=== PATIENT | male | born 1990 | race Caucasian/White ===

== ENCOUNTER 2021-06-17 16:34 | Emergency (ER) | payer MEDICAID ==
[~2021-06-17] VITALS: Ht 167.6 cm; Wt 84.0 kg
[2021-06-17 16:41] VITALS: BP 112/68
[2021-06-17] MEDS ORDERED: ACETAMINOPHEN 325MG TABLET PO ONE (17:00)
[2021-06-17 17:47] LABS: *COCAINE SCREEN URINE NEGATIVE (NEGATIVE); CANNABINOID URINE SCREEN NEGATIVE (NEGATIVE); METHADONE URINE SCREEN NEGATIVE (NEGATIVE); OPIATES URINE SCREEN NEGATIVE (NEGATIVE); PHENCYCLIDINE URINE SCREEN NEGATIVE (NEGATIVE)
[2021-06-17 17:48] LABS: *AMPHETAMINES SCREEN URINE NEGATIVE (NEGATIVE); *BARBITURATES SCREEN URINE NEGATIVE (NEGATIVE); *BENZODIAZEPINES SCREEN URINE NEGATIVE (NEGATIVE)
== END 2021-06-17 22:02 | disposition home or self-care (01) ==
LOC: ER 16:34
DX: S06.9X0A Unspecified intracranial injury without loss of consciousness, initial encounter (principal); Y04.2XXA Assault by strike against or bumped into by another person, initial encounter; Y93.89 Activity, other specified; Y92.018 Other place in single-family (private) house as the place of occurrence of the external cause
CPT/HCPCS: 80305; 99284